=== PATIENT | female | born 1980 ===

== ENCOUNTER 2018-07-27 08:26 | Emergency (ER) | payer OTHER ==
[2018-07-27 08:49] VITALS: BP 115/73
--- NOTE | 2018-07-27 08:54 | UC ---
Throat Pain/Nasal Elijah HPI - HPI Summary HPI Summary: Patient presents to the urgent care with body aches, post nasal drip, congestion in her chest, and now sore throat. Patient states she was handling the other symptoms well but the sore throat is bothering her. Patient reports burning when she drinks or eats. No difficulty breathing. No drooling. No nausea vomiting. No fevers, chills, rashes. Patient with sick contacts but no known exposure to strep throat Patient states she has taken Motrin with little relief. Patient able to drink soup broth NT this seems to soothe. Patient medications reviewed this visit. - History of Current Complaint Chief Complaint: UCGeneralIllness Stated Complaint: SORE THROAT Hx Obtained From: Patient Hx Last Menstrual Period: 07/14/18 Pain Intensity: 5 - Allergies/Home Medications Allergies/Adverse Reactions: Allergies Allergy/AdvReac Type Severity Reaction Status Date / Time No Known Allergies Allergy Verified 07/27/18 08:45 Home Medications: Home Medications Ibuprofen TAB* [Advil TAB*] 600 mg PO Q6H PRN 07/27/18 [History Confirmed ] PMH/Surg Hx/FS Hx/Imm Hx Previously Healthy: Yes - Surgical History Surgical History: Yes Surgery Procedure, Year, and Place: Uterine Polyps, 2014, [place] - Family History Known Family History: Positive: Non-Contributory - Social History Occupation: Employed Full-time Alcohol Use: Occasionally Substance Use Type: None Smoking Status (MU): Never Smoked Tobacco Review of Systems All Other Systems Reviewed And Are Negative: Yes ENT: Positive: Sore Throat, Sinus Congestion Physical Exam - Summary Physical Exam Summary: Vital Signs Reviewed: Yes A+Ox3, no distress Eyes: Conjunctiva Clear, SHERIF. EOM intact and full ENT: Hearing grossly normal TM x 2 clear, turbinates boggy, + PND, mmoist, uvula midline, no exudate, diffuse erythema Neck: Positive: Supple,no LA Respiratory: Positive: No respiratory distress, No accessory muscle use + CTA throughout no w/r Cardiovascular: RRR nl s1, s2 no m/r CBT <2 sec abd soft + BS nt/nd no guarding, no distension Musculoskeletal Exam: BRUNO x 4 without difficulty Strength Intact, ROM Intact Neurological: Positive: Alert, + sensation throughout Psychological: Positive: Normal Response To Family Skin: Positive: no rash, no ecchymosis Triage Information Reviewed: Yes Vital Signs: Initial Vital Signs Temp 98.5 F 07/27/18 08:44 Pulse 70 07/27/18 08:44 Resp 16 07/27/18 08:44 BP 115/73 07/27/18 08:44 Pulse Ox 100 07/27/18 08:44 Throat Pain/Nasal Course/Dx - Course Course Of Treatment: Pt presents wtih progressive sore throat, painful swallowing. pt given lidocaine with good effect. motrin/apap. hydrate. gargle. secretion precaution - Differential Dx/Diagnosis Provider Diagnosis: URI (upper respiratory infection), Pharyngitis Discharge - Sign-Out/Discharge Documenting (check all that apply): Patient Departure All imaging exams completed and their final reports reviewed: No Studies - Discharge Plan Condition: Stable Disposition: HOME Prescriptions: Fluticasone NASAL SPRAY 50MCG* [Flonase NASAL SPRAY 50MCG*] 2 spray BOTH NARES DAILY #1 btl Lidocaine 2% VISCOUS* [Xylocaine 2% Viscous*] 15 ml SWISH SPIT Q4H PRN #150 ml PRN Reason: Sore Throat Patient Education Materials: Pharyngitis (ED), Upper Respiratory Infection (ED) Forms: *Work Release Referrals: Rubio Deleon [Primary Care Provider] - Additional Instructions: - Okay to alternate ibuprofen (Advil, Motrin) and Tylenol every 3 hours for pain. Take with food. Do NOT take for more than 4-5 days - Okay to gargle and spit warm salt water every 4 hours as needed for pain - okay to gargle and spit with numbing medication as prescribed - Stay well hydrated - frequent sips of cold fluids will be soothing to your throat (popsicles, jello, ice cream, ice water). Avoid excess caffeine until your symptoms have resolved. -Throat infections are spread by oral secretions - do not share eating or drinking utensils until you symptoms are resolved. Clean items that may get your secretions such as cell phones, ipads, computer mouse, television remotes. Once you start to feel better, change your toothbrush and your pillowcase. - use nasal spray as prescribed - humidify the air in the room where you sleep - boil water, run a hot steam shower, vaporizer, cups of water by heat register - Okay to take over the counter cough and decongestant medication - Contact your doctor to arrange a follow-up appointment as needed - Billing Disposition and Condition Condition: STABLE Disposition: Home
[2018-07-27] MEDS ORDERED: Lidocaine 2% VISCOUS* 15 ML UDC PO ONE (09:34)
== END 2018-07-27 10:05 | disposition home or self-care (01) ==
LOC: UCCORT 08:26
DX: J06.9 Acute upper respiratory infection, unspecified (principal); J02.9 Acute pharyngitis, unspecified
CPT/HCPCS: 87651; 99212; G0463